=== PATIENT | female | born 1990 | race Caucasian/White ===

== ENCOUNTER 2016-09-18 18:50 | Emergency (ER) | payer OTHER ==
[2016-09-18 18:58] VITALS: RESP 18; TEMP 97.9; O2SAT 99
[2016-09-18] MEDS ORDERED: Tetanus/Diphtheria Toxoids 0.5 ml Syringe IM ONE ×2 (19:45→19:48)
--- NOTE | 2016-09-18 19:47 | C.PDOC ---
History Of Present Illness 25 year old patient presents to the ED complaining of a laceration to her right wrist from a kitchen knife while cooking just prior to arrival. Patient denies any numbness or weakness. Time Seen by Provider: 09/18/16 19:16 Chief Complaint (Nursing): Abnormal Skin Integrity History Per: Patient History/Exam Limitations: no limitations Onset/Duration Of Symptoms: Mins (just prior to arrival) Current Symptoms Are (Timing): Still Present Quality Of Symptoms: Painful Severity: Mild Pain Scale Rating Of: 3 Recent travel outside of the [place]: No Past Medical History Reviewed: Historical Data, Nursing Documentation, Vital Signs Vital Signs: Last Vital Signs Temp 97.9 F 09/18/16 18:56 Pulse 62 09/18/16 19:50 Resp 18 09/18/16 19:50 BP 102/69 09/18/16 19:50 Pulse Ox 99 09/18/16 20:31 Family History: States: No Known Family Hx - Social History Hx Alcohol Use: No Hx Substance Use: No - Immunization History Hx Tetanus Toxoid Vaccination: No Hx Influenza Vaccination: No Hx Pneumococcal Vaccination: No Review Of Systems Except As Marked, All Systems Reviewed And Found Negative. Skin: Positive for: Other (laceration to right wrist) Neurological: Negative for: Weakness, Numbness Physical Exam - Physical Exam Appears: Non-toxic, No Acute Distress Skin: Warm, Dry, Other (0.5 cm laceration to the volar aspect of the right wrist ; (-)active bleeding (-)foreign body (-)gross contamination) Neurological/Psych: Oriented x3, Normal Motor, Normal Sensation ED Course And Treatment O2 Sat by Pulse Oximetry: 99 (RA) Pulse Ox Interpretation: Normal Progress Note: Tenivac given. Laceration - Laceration Repair right wrist laceration Wound Length (In cm): 0.5 Description Of Wound: Linear Wound Cleansed With: Betadine, Sterile Saline Wound Examination: Irrigated With Saline, No FB With Wound Exploration, No Tendon Injury With Wound Exploration Wound Closure: Steri Strips, Skin Glue (dermabond) Wound Complexity: Simple Disposition - Disposition Disposition: HOME/ ROUTINE Disposition Time: 19:46 Condition: IMPROVED Additional Instructions: Follow up with PMD as needed. Return to ED if feel worse. 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 - Scribe Statement The provider has reviewed the documentation as recorded by the Scribe Silvia Coyle All medical record entries made by the Scribe were at my direction and personally dictated by me. I have reviewed the chart and agree that the record accurately reflects my personal performance of the history, physical exam, medical decision making, and the department course for this patient. I have also personally directed, reviewed, and agree with the discharge instructions and disposition.
[2016-09-18 20:01] VITALS: BP 102/69; PULSE 62
== END 2016-09-18 20:00 | disposition home or self-care (01) ==
LOC: C.ER 18:50
DX: S61.511A Laceration without foreign body of right wrist, initial encounter (principal); W26.0XXA Contact with knife, initial encounter; Y93.G3 Activity, cooking and baking